=== PATIENT | female | born 1935 | race Two or more races ===

== ENCOUNTER 2018-04-12 09:39 | Outpatient (CLI) | payer OTHER | END 2018-04-12 09:50 | disposition home or self-care (01) | LOC: RAD 501 09:39 | DX: M17.0 Bilateral primary osteoarthritis of knee (principal) ==

== ENCOUNTER 2018-09-26 08:10 | Outpatient (CLI) | payer OTHER | END 2018-09-26 08:27 | disposition home or self-care (01) | LOC: MRI 08:10 | DX: M23.304 Other meniscus derangements, unspecified medial meniscus, left knee (principal) | CPT/HCPCS: 73721 ==

== ENCOUNTER → 2018-09-26 | Outpatient (CLI) | payer OTHER | END | disposition home or self-care (01) | LOC: NUCLEAR 09:30 | DX: M81.0 Age-related osteoporosis without current pathological fracture (principal) ==

== ENCOUNTER 2019-12-05 09:49 | Inpatient (IN) | payer OTHER ==
[~2019-12-05] VITALS: Ht 160 cm; Wt 63.5 kg
[2019-12-05] MEDS ORDERED: SYNTHROID75 MCG (09:54)
[2019-12-05] MEDS ORDERED: DILTIAZEM 24HR180 MG (09:55)
[2019-12-12] MEDS ORDERED: GABAPENTIN300 M2 PO (08:58)
[2019-12-12] MEDS ORDERED: OMEPRAZOLE20 MG PO (08:58)
[2019-12-12] MEDS ORDERED: DICLOFENAC SOD100 GM (08:58)
[2019-12-12] MEDS ORDERED: DORZOLAMIDE HCL10 ML (08:59)
[2019-12-12] MEDS ORDERED: BUMETANIDE1 MG PO (08:59)
[2019-12-18] MEDS ORDERED: VANCOMYCIN HCL1 GM IV (08:21)
[2019-12-18] MEDS ORDERED: GABAPENTIN300 M2 PO (08:21)
== END 2019-12-19 10:55 | disposition home or self-care (01) | DRG 580 ==
LOC: ER 09:49 → SURH 11:04 → SEC-K 11:04 → SURH 12:07
PROVIDERS: Orthopaedic Surgery Hand Surgery; ADMIT Internal Medicine; ATTEND Internal Medicine
PROC: 0K9 Muscles, Drainage (ICD-10-PCS; principal; 2019-12-13 10:00)
DX: L03.116 Cellulitis of left lower limb (principal); L02.511 Cutaneous abscess of right hand; L03.115 Cellulitis of right lower limb; I10 Essential (primary) hypertension; E03.9 Hypothyroidism, unspecified; B96.5 Pseudomonas (aeruginosa) (mallei) (pseudomallei) as the cause of diseases classified elsewhere; B95.61 Methicillin susceptible Staphylococcus aureus infection as the cause of diseases classified elsewhere; M65.842 Other synovitis and tenosynovitis, left hand

== ENCOUNTER 2021-07-08 13:16 | Outpatient (CLI) | payer OTHER ==
[~2021-07-08 13:16] MED LIST: BUMETANIDE1 MG PO; DICLOFENAC SOD100 GM; DILTIAZEM 24HR180 MG; DORZOLAMIDE HCL10 ML; GABAPENTIN300 M2 PO; OMEPRAZOLE20 MG PO; SYNTHROID75 MCG; VANCOMYCIN HCL1 GM IV
== END 2021-07-08 13:21 | disposition home or self-care (01) ==
LOC: NUCLEAR 13:16
PROVIDERS: ATTEND Internal Medicine
DX: M54.59 Other low back pain (principal)

== ENCOUNTER 2022-07-28 09:14 | Outpatient (CLI) | payer OTHER | END 2022-07-28 09:24 | disposition home or self-care (01) | LOC: PPH VACUNA 09:14 | PROVIDERS: ATTEND Emergency Medicine Pediatric Emergency Medicine | DX: Z23 Encounter for immunization (principal) ==

== ENCOUNTER 2022-11-05 07:52 | Outpatient (CLI) | payer OTHER | END 2022-11-05 08:10 | disposition home or self-care (01) | LOC: TOM 07:52 | PROVIDERS: ATTEND Internal Medicine Gastroenterology | DX: R10.31 Right lower quadrant pain (principal); K59.00 Constipation, unspecified ==

== ENCOUNTER 2023-02-26 08:12 | Outpatient (CLI) | payer OTHER | END 2023-02-26 08:29 | disposition home or self-care (01) | LOC: TOM 08:12 | PROVIDERS: ATTEND Internal Medicine Gastroenterology | DX: R93.3 Abnormal findings on diagnostic imaging of other parts of digestive tract (principal); K59.00 Constipation, unspecified; K56.600 Partial intestinal obstruction, unspecified as to cause ==

== ENCOUNTER 2023-03-14 08:47 | Emergency (ER) | payer OTHER ==
[~2023-03-14] VITALS: Ht 157.5 cm; Wt 54.4 kg
[2023-03-14] MEDS ORDERED: SYNTHROID75 MCG PO (09:01)
== END 2023-03-14 14:33 | disposition home or self-care (01) ==
LOC: ER 08:47
DX: S00.03XA Contusion of scalp, initial encounter (principal); W18.39XA Other fall on same level, initial encounter; Y93.F1 Activity, caregiving, bathing; Y92.012 Bathroom of single-family (private) house as the place of occurrence of the external cause; M54.9 Dorsalgia, unspecified; Z88.2 Allergy status to sulfonamides; Z88.0 Allergy status to penicillin
CPT/HCPCS: 71045; 73521; 96372; 99284; J1885